=== PATIENT | male | born 1940 | race Caucasian/White ===

== ENCOUNTER 2018-11-29 11:52 | Emergency (ER) | payer MEDICARE, MEDICAID, SELFPAY ==
[2018-11-29] VITALS (15 sets, daily range): BP systolic 133–182; BP diastolic 77–93; PULSE 55–76; RESP 10–20; TEMP 36.4–36.5; O2SAT 92–98
[2018-11-29 12:38] LABS: Absolute Eosinophil Count 0.06 k/cumm (0.0-0.7); HCT 51.2 % (40.0-50.0); HGB 18.1 g/dL (13.5-17.5); Mean Corp. HGB Concentration 35.4 g/dL (32.0-36.0); Mean Corpuscular Hemoglobin 36.1 pg (27.0-33.0); Mean Corpuscular Volume 102.2 fL (80-95); Mean Platelet Volume 9.8 fL (8.0-11.0); Platelet Count 165 x1000/uL (130-400); RBC 5.01 m/cumm (4.50-6.00); RBC Distribution Width 13.8 % (11.8-14.1); White Blood Cell Count 5.75 k/cumm (4.4-10.8)
[2018-11-29 12:50] LABS: ALT 20 U/L (16-63); AST 27 U/L (15-37); Albumin 3.8 g/dL (3.4-5.0); Alkaline Phosphatase 119 U/L (46-116); Anion Gap 9.6 mmol/L (3-11); BUN 10 mg/dL (7-18); Bilirubin, Total 1.2 mg/dL (0.2-1.0); CO2 28.4 mmol/L (21.0-32.0); CREATININE 1.14 mg/dL (0.70-1.30); Calcium 9.1 mg/dL (8.5-10.1); Chloride 99 mmol/L (98-107); Glucose 117 mg/dL (70-100); Magnesium 1.8 mg/dL (1.8-2.4); Potassium 4.3 mmol/L (3.5-5.1); Sodium 137 mmol/L (136-145); Total Protein 7.1 g/dL (6.4-8.2)
[2018-11-29 12:51] LABS: Troponin I < 0.05 ng/mL (0.00-0.06)
[2018-11-29 12:54] LABS: Absolute Lymphocyte Count 0.75 k/cumm (1.2-3.4); Absolute Monocyte Count 0.17 k/cumm (0.11-0.7); Absolute Neutrophil Count 4.77 k/cumm (1.2-6.7); Atypical Lymphocytes % 4; Diff Comment Manual Differential; Macrocytosis 3+; Stomatocytes 2+
[2018-11-29 12:55] LABS: INR 1.1 (0.9-1.1); PTT Activated 25.2 sec (21.0-31.4); Prothrombin Time 10.8 sec (9.3-11.0)
--- NOTE | 2018-11-29 12:56 | ED.GENADUL_ITS ---
Discharge Plan Disposition Patient Disposition: HOME Discharge Details Chief Complaint: Dizzy/Sync Clinical Impression: Pre-syncope Primary Care Provider: Deniz Manzanares ED Provider: Oleksandr Perez Home Meds and New Rx's Prescriptions: Continued metoprolol succinate 50 mg Tablet Extended Release 24 Hr 50 mg PO DAILY RF: 0 enalapril maleate 20 mg Tablet 20 mg PO DAILY RF: 0 simvastatin 20 mg Tablet 20 mg PO DAILY RF: 0 omeprazole 20 mg Capsule,Delayed Release(Dr/Ec) 20 mg PO DAILY RF: 0 furosemide 20 mg Tablet 20 mg PO DAILY RF: 0 gabapentin 100 mg Capsule 100 mg PO TID RF: 0 fluticasone propionate 50 mcg/actuation [place],Suspension 2 spray INTRANASAL DAILY RF: 0 Discharge Instructions Instructions: Near Syncope (ED) Additional Instructions: Please contact your primary care physician to arrange follow-up. Call today. Patient discussed with the primary doctor the findings of enlarged thoracic aorta on CT imaging. Additional diagnostic testing may be necessary. Return to the ER for any worsening or new concerning symptoms. Referrals: Deniz Manzanares [Primary Care Provider] - Discharge Data Discharge Date/Time-TO BE ENTERED AT DEPARTURE: 11/29/18 15:24 Medical Decision Making 78-year-old male with history of hypertension presents after presyncopal episode with associated shortness of breath and chest tightness. Patient is hypertensive. He is not tachycardic. Saturating well on room air with no respiratory distress. ECG was reviewed and interpreted by me: Sinus bradycardia 58 bpm with left bundle branch block. I was able to obtain outside hospital record ECG from [facility] which shows left bundle branch block. Labs reviewed and reassuring. CT of the chest was interpreted by radiology: No PE, enlarged thoracic aorta - recommend outpatient follow-up and continued monitoring. Results were discussed with the patient. Plan for outpatient follow-up with his PCP. Disposition decision was made weighing the risks and benefits of hospitalization versus outpatient treatment, the risk for further decompensation, and the [place] ent's wishes. The patient was stable and requested discharge. Prior to discharge, my usual and customary return precautions were reviewed with the patient - this included follow-up instructions and reason to return to the emergency department if condition worsens, does not improve as expected, or other new concerns arise. HPI General Date/Time Provider Initiated Documentation: 11/29/18 12:05 . Limitations to Documentation: no limitations . Information obtained by: patient . HPI Narrative: 78-year-old male with history of hypertension presents with chief complaint of dizziness. Patient notes earlier today he experienced an episode that lasted approximately 30 minutes of moderate to severe dizziness, felt like he was going to pass out, no modifiers, he had associated blurring of his vision, mild chest tightness and shortness of breath. Symptoms now resolved. Related Data Home Medications Medication Instructions Recorded Confirmed enalapril maleate 20 mg PO DAILY 11/29/18 11/29/18 fluticasone propionate 2 spray INTRANASAL DAILY 11/29/18 11/29/18 furosemide 20 mg PO DAILY 11/29/18 11/29/18 gabapentin 100 mg PO TID 11/29/18 11/29/18 metoprolol succinate 50 mg PO DAILY 11/29/18 11/29/18 omeprazole 20 mg PO DAILY 11/29/18 11/29/18 simvastatin 20 mg PO DAILY 11/29/18 11/29/18 Allergies Allergy/AdvReac Type Severity Reaction Status Date / Time No Known Allergies Allergy Unverified 11/29/18 12:09 General Stated Complaint: Dizzy/Sync ALEJANDRA: 3 Review of Systems Review of Systems ROS Unobtainable: All systems reviewed & are unremarkable except as noted in HPI and below Cardiovascular Cardiovascular: Reports as per HPI Respiratory Respiratory: Reports as per HPI Gastrointestinal Gastrointestinal: Denies abdominal pain [facility] Social History Smoking/Tobacco Use Status: Former Tobacco Use Alcohol Intake: current Alcohol Intake frequency: 3 or more drinks per day Alcohol type: beer, wine and hard liquor Drug use: Daily Substance use type: does not use Do you feel safe at home: Yes Exam Const General: cooperative and no acute distress [facility] Head: normocephalic Mouth: moist mucous membranes Eyes Conjunctivae: normal conjunctivae Sclera: normal sclerae Neck Neck: trachea midline, supple and no JVD Resp Effort & Inspection: normal respiratory effort Auscultation: clear to auscultation bilaterally, no rales, no rhonchi and no wheezes Cardio Jugular venous pressure: no JVD Rate: regular rate and not tachycardic Rhythm: regular rhythm Heart Sounds: no click, no gallops, no murmurs and no rubs GI Palpation: soft, not firm, no guarding, no masses, not rigid and nontender Skin General skin exam: no rashes or lesions noted Neuro General: alert, awake, oriented x3 and tone normal Extrem General: no calf tenderness and no edema Psych Appearance: grossly normal Mental Status: mental status grossly normal Speech and Movement: speech and movement normal Course Vital Signs Vital signs: Vital Signs Temperature 36.5 C 11/29/18 11:59 Pulse 62 11/29/18 11:59 Blood Pressure 162/81 H 11/29/18 11:59 Pulse Oximetry 97 11/29/18 11:59 Temperature 36.5 C 11/29/18 11:59 Temperature Source Skin 11/29/18 11:59 Pulse 62 11/29/18 11:59 Blood Pressure 162/81 H 11/29/18 11:59 Blood Pressure Position Sitting 11/29/18 11:59 Pulse Oximetry 97 11/29/18 11:59 Oxygen Delivery Method Room Air 11/29/18 11:59 Oxygen Flow Rate 0 11/29/18 11:59 Pain Level 0 11/29/18 11:59 Lab/Test Results Lab/Test Results: Laboratory Tests Range/Units 11/29/18 11/29/18 11/29/18 12:25 12:25 12:25 WBC (4.4-10.8) k/cumm 5.75 RBC (4.50-6.00) m/cumm 5.01 Hgb (13.5-17.5) g/dL 18.1 H Hct (40.0-50.0) % 51.2 H MCV (80-95) fL 102.2 H MCH (27.0-33.0) pg 36.1 H MCHC (32.0-36.0) g/dL 35.4 RDW (11.8-14.1) % 13.8 Plt Count (130-400) x1000/uL 165 MPV (8.0-11.0) fL 9.8 Immature Gran % 0.0 Neutrophils % 82.0 Band Neutrophils % % 1.0 Lymphocytes % 9.0 Atypical Lymphs % 4 Monocytes % 3.0 Eosinophils % 1.0 Basophils % 0.0 Absolute Neutrophils (1.2-6.7) k/cumm 4.77 Absolute Lymphocytes (1.2-3.4) k/cumm 0.75 L Absolute Monocytes (0.11-0.7) k/cumm 0.17 Absolute Eosinophils (0.0-0.7) k/cumm 0.06 Absolute Basophils (0.0-0.2) k/cumm 0.00 Differential Comment Manual differential RBC Morphology See below Macrocytosis 3+ Stomatocytes 2+ PT (9.3-11.0) sec 10.8 INR (0.9-1.1) 1.1 APTT (21.0-31.4) sec 25.2 Sodium (136-145) mmol/L 137 Potassium (3.5-5.1) mmol/L 4.3 Chloride (98-107) mmol/L 99 Carbon Dioxide (21.0-32.0) mmol/L 28.4 Anion Gap (3-11) mmol/L 9.6 BUN (7-18) mg/dL 10 Creatinine (0.70-1.30) mg/dL 1.14 Estimated GFR/1.73 m2 (mL/min/1.73m2) >= 60.00 Glucose (70-100) mg/dL 117 H Calcium (8.5-10.1) mg/dL 9.1 Magnesium (1.8-2.4) mg/dL 1.8 Total Bilirubin (0.2-1.0) mg/dL 1.2 H AST (15-37) U/L 27 ALT (16-63) U/L 20 Alkaline Phosphatase (46-116) U/L 119 H Troponin I (0.00-0.06) ng/mL < 0.05 Total Protein (6.4-8.2) g/dL 7.1 Albumin (3.4-5.0) g/dL 3.8
[2018-11-29] MEDS: Omnipaque 350 MG/ML 100 ML BTL IJ (14:51)
--- NOTE | 2018-11-29 14:52 | DI.CT_ITS ---
EXAM: CT CHEST PE CTA CLINICAL HISTORY: syncope, lymphoma. TECHNIQUE: Axial CT angiography was performed with multislice acquisition and multiplanar and/or 3D reconstructions. CT angiography of the chest was performed bolus infusion of 100 cc of Omnipaque 350. COMPARISON: No exams were available for comparison FINDINGS: Images obtained through the upper abdomen show unremarkable appearance of visualized portions of live r, spleen, pancreas, adrenals and kidneys. Gallbladder and bile ducts are CT normal. There is no evidence of pulmonary embolic disease. There is ectasia of the distal thoracic aortic ar ch and proximal descending aorta measuring up to about 4.5 cm in diameter. No evidence of dissection . No pulmonary embolic disease. The lungs are predominantly clear with a calcified pulmonary nodule in the left lung base consistent with healed granulomatous disease. No evidence of mediastinal, diya r, upper abdominal, axillary or supraclavicular adenopathy. IMPRESSION: No evidence of pulmonary embolic disease. Distal arch/proximal descending aortic ectasia at 4.5 cm.
== END 2018-11-29 15:24 | disposition home or self-care (01) ==
PROVIDERS: Emergency Provider Student in an Organized Health Care Education/Training Program; PCP Family Medicine
DX: R55 Syncope and collapse (principal); R00.1 Bradycardia, unspecified
CPT/HCPCS: 36415; 36416; 71275; 80053; 82962; 93005; 99285; 83735; 84484; 85025; 85610; 85730; 93010; J3490

== ENCOUNTER 2021-03-04 14:02 | Outpatient (REF) | payer MEDICARE, MEDICAID, SELFPAY ==
[2021-03-04 14:31] LABS: ALT 25 U/L (16-63); AST 27 U/L (15-37); Alkaline Phosphatase 89 U/L (46-116); Anion Gap 4.6 mmol/L (3-11); BUN 6 mg/dL (7-18); Bilirubin, Total 0.8 mg/dL (0.2-1.0); CO2 28.4 mmol/L (21.0-32.0); CREATININE 1.1 mg/dL (0.70-1.30); Calcium 8.1 mg/dL (8.5-10.1); Chloride 104 mmol/L (98-107); Glucose 104 mg/dL (74-106); PHOSPHORUS 2.8 mg/dL (2.6-4.7); Potassium 3.7 mmol/L (3.5-5.1); Sodium 137 mmol/L (136-145); Total Protein 5.4 g/dL (6.4-8.2); Uric Acid 3.6 mg/dL (3.5-7.2)
== END 2021-03-04 14:03 | disposition home or self-care (01) ==
LOC: LBN 14:02
PROVIDERS: PCP Family Medicine; Visit Provider Internal Medicine Hematology & Oncology
DX: C83.10 Mantle cell lymphoma, unspecified site (principal)
CPT/HCPCS: 80053; 84100; 84550

== ENCOUNTER 2021-03-05 07:00 | Outpatient (RCR) | payer MEDICARE, MEDICAID, SELFPAY ==
[2021-03-05 07:45] LABS: Abs Immature Grans 0.02 10^3/uL (0.0-0.06); Absolute Basophil Count 0.06 10^3/uL (0.0-0.2); Absolute Eosinophil Count 0.17 10^3/uL (0.0-0.7); Absolute Lymphocyte Count 0.84 10^3/uL (1.2-3.4); Absolute Monocyte Count 0.63 10^3/uL (0.1-0.8); Absolute Neutrophil Count 5.09 10^3/uL (1.2-6.7); Basophils % 0.9; Eosinophils % 2.5; HCT 39.2 % (40.0-50.0); HGB 13.7 g/dL (13.5-17.5); Immature Grans % 0.3; Lymphocytes % 12.3; MCH 38.6 pg (27.0-33.0); MCHC 34.9 % (32.0-36.0); MCV 110.4 fL (80-95); MPV 9.6 fL (8.0-11.0); Monocytes % 9.3; Neutrophils % 74.7; Nucleated RBC 0 %; Platelet Count 214 10^3/uL (130-400); RBC 3.55 10^6/uL (4.36-5.78); RDW 12.3 % (11.8-14.1); RDW-SD 50.5 fL; WBC 6.81 10^3/uL (4.4-10.8)
[2021-03-05 07:59] LABS: ALT 26 U/L (16-63); AST 28 U/L (15-37); Albumin 3.4 g/dL (3.4-5.0); Alkaline Phosphatase 103 U/L (46-116); Anion Gap 6.5 mmol/L (3-11); BUN 7 mg/dL (7-18); Bilirubin, Total 0.7 mg/dL (0.2-1.0); CO2 29.5 mmol/L (21.0-32.0); CREATININE 1.2 mg/dL (0.70-1.30); Calcium 8.6 mg/dL (8.5-10.1); Chloride 104 mmol/L (98-107); Estimated GFR 58.56 (mL/min/1.73m2); Glucose 95 mg/dL (74-106); Potassium 3.9 mmol/L (3.5-5.1); Sodium 140 mmol/L (136-145); Total Protein 6.3 g/dL (6.4-8.2)
[2021-03-05 08:28] LABS: LDH 210 U/L (85-227); PHOSPHORUS 2.6 mg/dL (2.6-4.7); Uric Acid 3.6 mg/dL (3.5-7.2)
== END 2021-03-13 23:59 | disposition home or self-care (01) ==
LOC: INF 07:00
PROVIDERS: PCP Family Medicine; Visit Provider Internal Medicine Hematology & Oncology
DX: C83.18 Mantle cell lymphoma, lymph nodes of multiple sites (principal)
CPT/HCPCS: 36415; 80053; 83615; 84100; 84550; 85025

== ENCOUNTER 2021-08-26 10:03 | Emergency (ER) | payer MEDICARE, MEDICAID, SELFPAY ==
[2021-08-26] VITALS (12 sets, daily range): BP systolic 102–130; BP diastolic 73–82; PULSE 65–92; RESP 9–19; TEMP 36.5–37; O2SAT 84–98
--- NOTE | 2021-08-26 10:00 | RT.EKG_ITS ---
APPROVED REPORT Exam: Resting ECG Reason for Exam: difficulty breathing Patient Location: E HR:77 bpm ECG Measurements Heart Rate 77 AXIS WV 173 P 40 QRSd 153 QRS 22 QT 431 T 205 QTc 488 Conclusion Sinus rhythm...normal P axis, V-rate 60- 99 Left bundle branch block...QRSd>120, broad/notched R
--- NOTE | 2021-08-26 10:58 | W.ED.GENAD ---
Discharge Plan Disposition Patient Disposition: HOME Condition: Stable Discharge Details Clinical Impression: Hypomagnesemia, Esophagitis, Dehydration, Anorexia, Lymphoma Primary Care Provider: Deniz Manzanares ED Provider: iLzet Cruz Home Meds and New Rx's Prescriptions: New famotidine [Pepcid] 20 mg tablet 20 mg PO BID Qty: 14 0RF magnesium gluconate 27.5 mg magne- sium (500 mg) tablet 27.5 mg PO DAILY Qty: 14 0RF metoclopramide HCl [Reglan] 5 mg tablet 5 mg PO QAC Qty: 14 0RF Rx Instructions: administer 30 minutes before meals sucralfate [Carafate] 1 gram tablet 1 g PO BID Qty: 60 0RF Continued Venclexta 100 mg tablet 300 mg PO DAILY Spiriva Respimat 2.5 mcg/actuation mist 2 puff inhalation DAILY Qty: 4 12RF fluticasone propionate 50 mcg/actuation [place],suspension 2 spray intranasal DAILY Rx Instructions: administer into each nostril ipratropium-albuterol 0.5 mg-3 mg(2.5 mg base)/3 mL solution for nebulization 3 ml inhalation Q4H PRN (Reason: wheezing) Qty: 180 12RF fluticasone propion-salmeterol [Advair Diskus] 500-50 mcg/dose blister with device 1 inh inhalation BID albuterol sulfate [Ventolin HFA] 90 mcg/actuation HFA aerosol inhaler 2 puff inhalation 6XD metoclopramide HCl 5 mg Tablet 5 mg PO QID Rx Instructions: administer 30 minutes before meals megestrol 40 mg Tablet 40 mg PO QID metoprolol succinate 50 mg Tablet Extended Release 24 Hr 50 mg PO DAILY enalapril maleate 20 mg Tablet 20 mg PO DAILY simvastatin 20 mg Tablet 20 mg PO DAILY omeprazole 20 mg Capsule,Delayed Release(Dr/Ec) 20 mg PO DAILY furosemide 20 mg Tablet 20 mg PO DAILY gabapentin 100 mg Capsule 100 mg PO TID Discharge Instructions Instructions: Dehydration (ED), Hypomagnesemia (ED) Additional Instructions: boost or ensure drink daily to enhance your vitamins and electrolytes magnesium vitamin daily carafate as prescribed pepcid as prescribed reglan for nausea eat small, frequent meals throughout day, stick to a bland diet follow-up with your pcp to schedule endoscopy with persistent symptoms im listing surgery below if you would like schedule endoscopy at this facility Referrals: Kanwal Gomez MD [ NON-[facility] STAFF PHYSICIAN] - Deniz Manzanares [Primary Care Provider] - Nedra Oneal DO [OSTEOPATHIC DOCTOR] - Medical Decision Making <RITU Trejo - Last Filed: 08/26/21 15:23> Patient appears markedly improved He received 2 g of IV mag and 500 of oral magnesium gluconate I did consider imaging of patient's chest abdomen and pelvis, however he had CT scan approximately a week ago and his symptoms have not changed in fact they are improved from his initial assessment The concerning factors but his magnesium is 0.9 He was able to tolerate oral mag and food and fluid in the emergency department Is given prescription for Reglan as an antiemetic and encouraged to have approximately quarter cup of food every hour to 2 hours He is also encouraged to have boost and Ensure daily He is placed on Carafate, Pepcid, magnesium, boost, he will need outpatient follow-up for endoscopy, he is given a surgery referral He is encouraged to follow-up with his PCP and to take magnesium daily He is aware of the importance of eating a regular diet All of his records from his recent admission at [facility] were reviewed in detail I think patient is stable at this time for discharge home His orthostatics are negative He is ambulatory with steady gait and does report significant improvement in symptoms Vitals are stable EKG is stable for patient with left bundle branch block without new abnormality or findings consistent with hypomagnesemia Medical Records Medical records reviewed: Yes I reviewed the patient's medical records. Lab Data Lab results reviewed: Yes I reviewed the patient's lab results. ECG Data Prior ECG tracings: available for review <Oleksandr Perez MD - Last Filed: 08/26/21 15:58> Date: 08/26/21 Time: 11:15 Note: Patient seen, examined, and discussed with RITU Garcia. I agree with treatment plan as discussed/documented. HPI <RITU Trejo - Last Filed: 08/26/21 15:23> General Date/Time Provider Initiated Documentation: 08/26/21 10:07. HPI Narrative: This 81-year-old gentleman with history of COPD, non-Hodgkin's lymphoma, mantle cell lymphoma, alcohol abuse, and neuropathy, esophagitis, left bundle branch block, presents with reports of weakness with approximately 50 pound weight loss in the past month and a half. Patient states he had a similar event approximately 8 days ago for which she was admitted in [facility] he received IV fluids and assessment. He states that he was feeling marked improvement when he was discharged home and has progressively experienced return of symptoms. He states that he is having difficulty eating secondary to a sensation of fullness. He does have some chronic pain in his abdomen that he does not feel is worsening. He states that food occasionally feels like it gets stuck . Denies any associated chest pain or shortness of breath . Have intermittent nausea without vomiting. Has since discontinued his oral chemotherapy. he states that sometimes he experiences vomiting when he attempts to eat or drink. He denies any blood in vomitus or stool. He denies any new medications. He stopped taking his chemotherapy on July 25 per patient. Denies any urinary symptoms. Has not had a drink of alcohol for approximately 9 months reportedly. Related Data Home Medications Medication Instructions Recorded Confirmed enalapril maleate 20 mg tablet 20 mg PO DAILY 11/29/18 08/26/21 furosemide 20 mg tablet 20 mg PO DAILY 11/29/18 08/26/21 gabapentin 100 mg capsule 100 mg PO TID 11/29/18 08/26/21 metoprolol succinate 50 mg 50 mg PO DAILY 11/29/18 08/26/21 tablet,extended release 24 hr omeprazole 20 mg capsule,delayed 20 mg PO DAILY 11/29/18 08/26/21 release simvastatin 20 mg tablet 20 mg PO DAILY 11/29/18 08/26/21 albuterol sulfate 90 mcg/actuation 2 puff inhalation 6XD 10/14/20 08/26/21 aerosol inhaler (Ventolin HFA) fluticasone 500 mcg-salmeterol 50 1 inh inhalation BID 10/14/20 08/26/21 mcg/dose blistr powdr for inhalation (Advair Diskus) tiotropium bromide 2.5 2 puff inhalation DAILY #4 grams 04/24/21 08/26/21 mcg/actuation mist for inhalation (Spiriva Respimat) venetoclax 100 mg tablet 300 mg PO DAILY 04/24/21 07/22/21 (Venclexta) fluticasone propionate 50 2 spray intranasal DAILY 07/22/21 08/26/21 mcg/actuation nasal spray,suspension ipratropium 0.5 mg-albuterol 3 mg 3 ml inhalation Q4H PRN wheezing 07/24/21 08/26/21 (2.5 mg base)/3 mL nebulization #180 mL soln famotidine 20 mg tablet (Pepcid) 20 mg PO BID #14 tabs 08/26/21 magnesium gluconate 27.5 mg 27.5 mg PO DAILY #14 tabs 08/26/21 magnesium (500 mg) tablet megestrol 40 mg tablet 40 mg PO QID 08/26/21 08/26/21 metoclopramide HCl 5 mg tablet 5 mg PO QID 08/26/21 08/26/21 metoclopramide HCl 5 mg tablet 5 mg PO QAC #14 tabs 08/26/21 (Reglan) sucralfate 1 gram tablet (Carafate) 1 g PO BID #60 tabs 08/26/21 Previous Rx's Medication Instructions Recorded tiotropium bromide 2.5 2 puff inhalation DAILY #4 grams 04/24/21 mcg/actuation mist for inhalation (Spiriva Respimat) ipratropium 0.5 mg-albuterol 3 mg 3 ml inhalation Q4H PRN wheezing 07/24/21 (2.5 mg base)/3 mL nebulization #180 mL soln famotidine 20 mg tablet (Pepcid) 20 mg PO BID #14 tabs 08/26/21 magnesium gluconate 27.5 mg 27.5 mg PO DAILY #14 tabs 08/26/21 magnesium (500 mg) tablet metoclopramide HCl 5 mg tablet 5 mg PO QAC #14 tabs 08/26/21 (Reglan) sucralfate 1 gram tablet (Carafate) 1 g PO BID #60 tabs 08/26/21 Allergies Allergy/AdvReac Type Severity Reaction Status Date / Time levofloxacin Allergy Severe Verified 08/26/21 10:45 General Stated Complaint: GenMedical ALEJANDRA: 3 Review of Systems <RITU Trejo - Last Filed: 08/26/21 15:23> All systems reviewed & are unremarkable except as noted in HPI and below PFSH <RITU Trejo - Last Filed: 08/26/21 15:23> All Active Problems (Updated 08/26/21 @ 14:30 by RITU Trejo) Hypomagnesemia (Acute) Esophagitis (Acute) Dehydration (Acute) Anorexia (Acute) Lymphoma (Acute) Sinusitis (Acute) Hemorrhage of colon due to diverticulosis (Acute) Left shoulder pain (Acute) Dyspnea on exertion (Acute) Dupuytren's disease of palm (Acute) Gastrointestinal hemorrhage (Chronic) Acute gastritis (Acute) Esophagitis (Acute) Pleural effusion (Acute) COPD (chronic obstructive pulmonary disease) (Chronic) Hemorrhoids (Acute) Left bundle branch block (Acute) Hypertensive disorder (Chronic) Hearing loss (Acute) Neuropathy (Acute) Lesion of ulnar nerve (Acute) Alcohol abuse (Chronic) Overweight (Acute) Non-Hodgkin lymphoma (Chronic) Mantle cell lymphoma (Acute) Family History (Updated 10/14/20 @ 10:17 by Maye Huddleston) Father COPD (chronic obstructive pulmonary disease) Mother Malignant neoplasm of liver Social History (Updated 10/14/20 @ 10:20 by Maye Huddleston) Smoking/Tobacco Use Status: Former Tobacco Use Quit Date: 03/14/89 Smoking risk assessment performed?: Yes Alcohol Intake: current Alcohol Intake frequency: 0-2 drinks per day Alcohol type: wine Drug use: Never Substance use type: does not use Household members: none Communication Needs: Hard of Hearing Do you feel safe at home: Yes Do you feel safe in your relationship?: Yes Exam <RITU Trejo - Last Filed: 08/26/21 15:23> Const General: cooperative and comfortable Orientation: alert and oriented x3 HENMT Mouth: oral mucosae normal Throat: uvula midline Eyes Pupils: PERRL Resp Effort & Inspection: normal respiratory effort Auscultation: clear to auscultation bilaterally Cardio Rate: regular rate Rhythm: regular rhythm GI Other: Mild abdominal tenderness without rebound or guarding Skin General skin exam: no rashes or lesions noted Neuro General: patient alert and patient oriented x3 Speech: speech normal Gait: normal gait Extrem General: normal to inspection Course <RITU Trejo - Last Filed: 08/26/21 15:23> Vital Signs Vital signs: Vital Signs Temperature 36.5 C 08/26/21 10:04 Pulse 75 08/26/21 10:04 Respiratory Rate 18 08/26/21 10:04 Blood Pressure 117/80 08/26/21 10:04 Pulse Oximetry 98 08/26/21 10:04 Temperature 36.5 C 08/26/21 10:04 Temperature Source Temporal Artery Scan 08/26/21 10:04 Pulse 75 08/26/21 10:04 Respiratory Rate 18 08/26/21 10:46 Respiratory Effort Non-Labored 08/26/21 10:46 Respiratory Depth Normal 08/26/21 10:46 Respiratory Pattern Normal 08/26/21 10:46 Blood Pressure 117/80 08/26/21 10:04 Blood Pressure Position Sitting 08/26/21 10:04 Pulse Oximetry 98 08/26/21 10:04 Oxygen Delivery Method Room Air 08/26/21 10:04 Oxygen Flow Rate 0 08/26/21 10:04 Pain Level 4 08/26/21 10:04 PAWSS <RITU Trejo - Last Filed: 08/26/21 15:23> Have you Been Recently Intoxicated or Drunk Within the Last 30 days?: No Have you Ever Experienced Previous Episodes of Alcohol Withdrawal?: No Have you ever Experienced Withdrawal Seizures?: No Have you ever Experienced Delirium Tremens(DT)s?: No Have you ever undergone Alcohol Rehabilitation Treatment (i.e, inpt ot outpatient treatment programs)?: No Have you ever Experienced Blackouts?: No Have you ever Combined Alcohol with other Downers within the last 90 days?: No Have you ever Combined Alcohol with any other Substance of Abuse during the last 90 days?: No Positive Blood Alcohol level on Presentation? [PCS.BAL]: No Evidence of Increased Autonomic Activity (i.e. HR>120, tremor, sweating, agitation, nausea)?: No Result: 0 <Oleksandr Perez MD - Last Filed: 08/26/21 15:58> Result: 0
[2021-08-26 11:04] LABS: Abs Immature Grans 0.03 10^3/uL (0.0-0.06); Absolute Basophil Count 0.03 10^3/uL (0.0-0.2); Absolute Monocyte Count 0.72 10^3/uL (0.1-0.8); Absolute Neutrophil Count 6.85 10^3/uL (1.2-6.7); Basophils % 0.4; Eosinophils % 1.2; HCT 36.2 % (40.0-50.0); HGB 13.1 g/dL (13.5-17.5); Immature Grans % 0.4; Lymphocytes % 4.9; MCH 37.8 pg (27.0-33.0); MCHC 36.2 % (32.0-36.0); MCV 104 fL (80-95); MPV 10.1 fL (8.0-11.0); Monocytes % 8.9; Neutrophils % 84.2; Platelet Count 178 10^3/uL (130-400); RBC 3.47 10^6/uL (4.36-5.78); RDW 12.9 % (11.8-14.1); RDW-SD 49.1 fL; WBC 8.13 10^3/uL (4.4-10.8)
[2021-08-26] MEDS: Famotidine 20 MG/2 ML VIAL IVP (11:07)
[2021-08-26] MEDS: Lactated Ringers 1,000 ML 1000 ML IV (11:07)
[2021-08-26] MEDS: Sucralfate 1 GM TAB PO (11:13)
[2021-08-26 11:28] LABS: ALT 16 U/L (16-63); AST 21 U/L (15-37); Albumin 2.9 g/dL (3.4-5.0); Alkaline Phosphatase 120 U/L (46-116); Anion Gap 10.2 mmol/L (3-11); BUN 10 mg/dL (7-18); CO2 25.8 mmol/L (21.0-32.0); Calcium 8.5 mg/dL (8.5-10.1); Chloride 98 mmol/L (98-107); Glucose 107 mg/dL (74-106); Lipase 35 U/L (73-393); Magnesium 0.9 mg/dL (1.8-2.4); Potassium 3.8 mmol/L (3.5-5.1); Sodium 134 mmol/L (136-145); TSH (W/Ref FT4) 4.35 uIU/mL (0.36-3.74); Total Protein 6.4 g/dL (6.4-8.2)
[2021-08-26 11:51] LABS: FREE T4 1.43 ng/dL (0.76-1.46)
[2021-08-26] MEDS: MAGNESIUM SULFATE 2 GM/50 ML BAG IVPB (12:00)
[2021-08-26] MEDS: Metoclopramide 10 MG/2 ML VIAL 5 MG IVP (12:34)
[2021-08-26] MEDS: Lactated Ringers 500 ML IV (12:34)
[2021-08-26] MEDS: Magnesium Gluconate 500 MG TAB PO (12:37)
[2021-08-26 14:06] LABS: Magnesium 1.6 mg/dL (1.8-2.4)
--- NOTE | 2021-08-26 15:24 | NUR.NOTE ---
Nursing Note: Referral to PCP for recheck for magnesium LUIS, given to Care Management.
== END 2021-08-26 14:37 | disposition home or self-care (01) ==
LOC: ER 14:30
PROVIDERS: Emergency Provider Physician Assistant; PCP Family Medicine
DX: E83.42 Hypomagnesemia (principal); K20.90 Esophagitis, unspecified without bleeding; E86.0 Dehydration; R63.0 Anorexia; C85.90 Non-Hodgkin lymphoma, unspecified, unspecified site; J44.9 Chronic obstructive pulmonary disease, unspecified; I10 Essential (primary) hypertension
CPT/HCPCS: 36415; 80053; 83690; 93005; 96361; 96365; 96366; 96375; 99284; 83735; 84439; 84443; 85025; 93010; J2765

== ENCOUNTER → 2021-09-03 10:14 | Outpatient (BNVA) | payer MEDICARE, MEDICAID, SELFPAY | PROVIDERS: PCP Family Medicine; Referring Provider Family Medicine; Visit Provider Physical Therapy Assistant | DX: R63.4 Abnormal weight loss (principal); K20.90 Esophagitis, unspecified without bleeding; R10.9 Unspecified abdominal pain | CPT/HCPCS: 99214 ==

== ENCOUNTER 2021-10-13 02:57 | Outpatient (CLI) | payer MEDICARE, MEDICAID, SELFPAY ==
[2021-10-13 08:54] LABS: Source Nasal/Nares
[2021-10-13 14:22] LABS: COVID-19 PCR Negative (Negative)
== END 2021-10-13 02:58 | disposition home or self-care (01) ==
LOC: LBO 02:57
PROVIDERS: Visit Provider Surgery
DX: Z20.822 Contact with and (suspected) exposure to COVID-19 (principal); Z01.818 Encounter for other preprocedural examination
CPT/HCPCS: 87635

== ENCOUNTER 2021-11-10 02:54 | Outpatient (CLI) | payer MEDICARE, MEDICAID, SELFPAY ==
[2021-11-10 12:50] LABS: Source Nasal/Nares
[2021-11-10 15:19] LABS: COVID-19 PCR Negative (Negative)
== END 2021-11-10 02:55 | disposition home or self-care (01) ==
PROVIDERS: Visit Provider Surgery
DX: Z01.818 Encounter for other preprocedural examination (principal); Z20.822 Contact with and (suspected) exposure to COVID-19
CPT/HCPCS: 87635

== ENCOUNTER 2021-11-12 06:07 | Day surgery (SDC) | payer MEDICARE, MEDICAID, SELFPAY ==
[2021-11-12 06:36] VITALS: BP 114/83; PULSE 99; RESP 18; TEMP 36.7; O2SAT 96
--- NOTE | 2021-11-12 06:53 | W.PM.HP.N ---
Date of service: 11/12/21 Time of Service: 06:53 Assessment and Plan Assessment and plan (1) Acute gastritis: Status: Acute Assessment and plan: proceed with egd and colonoscopy History of Present Illness History of Present Illness Chief Complaint: abdominal pain and weight loss Narrative: 81-year-old man with a history of COPD, alcohol abuse, mantle cell lymphoma, non-Hodgkin's lymphoma and hearing loss presents for further evaluation of abdominal pain.? Patient is very hard of hearing which makes communication challenging.? He states that his hearing aid is not working.? Patient was seen in the ER at [facility] on 08/26 and was started on famotidine, magnesium supplement, Carafate and Reglan.? Patient states his symptoms have mildly improved since starting these medications however he continues to have difficulty eating.? He is unable to further describe what is causing his difficulty.? States that he is simply not hungry.? Patient was also seen at [facility] and was admitted on 08/09 through 08/12.? CT scan at that time did not show any abdominal processes. Patient states that he is not hungry he was experiencing nausea which has improved slightly.? He has been drinking Gatorade and ensures for hydration and nutrition.? ? He states that he drinks approximately one 5 L box of wine per week.? He states that his abdominal pain has improved slightly however any type of pressure in his abdomen increases his pain.? He states that he is not passing many bowel movements mostly flatus due to his lack of eating.? He describes having occasional bouts of diarrhea.? Patient states that he was being treated with oral chemotherapy medications however he stopped this on July 25 because he felt this was causing his symptoms.? PET scan from June 2021 showed overall improvement however residual active lymphoma was noted in the cutaneous and subcutaneous sites of the body in bilateral inguinal nodes and in the palate.? Patient states that he has continued to see oncology at the [facility] which he saw last week and he was given IV hydration.? He states that once he has received IV fluids he feels much better. He denies any significant changes since we saw him in the office this past August Review of Systems Constitutional Constitutional: Denies body ache(s), Denies fever(s), Reports poor appetite and Reports weight loss Comments: he feels dehydrated Eyes Eyes: Reports system reviewed and no additional complaints, except as documented ENT Ears, Nose, Mouth, and Throat: Reports abnormal hearing (stable) Cardiovascular Cardiovascular: Denies chest pain and Denies dyspnea Respiratory Respiratory: Denies chest congestion, Denies cough and Denies dyspnea Gastrointestinal Gastrointestinal: Reports abdominal pain, Denies bloating, Denies nausea and Denies vomiting Musculoskeletal Musculoskeletal: Reports system reviewed and no additional complaints, except as documented Neurologic Neurologic: Reports system reviewed and no additional complaints, except as documented and Reports abnormal hearing (stable) Psychiatric Psychiatric: Reports system reviewed and no additional complaints, except as documented Hematologic/Lymphatic Hematologic/Lymphatic: Denies easy bleeding and Denies easy bruising PFSH All Active Problems Mantle cell lymphoma (Acute) Non-Hodgkin lymphoma (Chronic) Alcohol abuse (Chronic) Hearing loss (Acute) Left bundle branch block (Acute) COPD (chronic obstructive pulmonary disease) (Chronic) Pleural effusion (Acute) Acute gastritis (Acute) Dyspnea on exertion (Acute) Medical History Dehydration Dupuytren's disease of palm Gastrointestinal hemorrhage Hemorrhage of colon due to diverticulosis Hemorrhoids Hypertensive disorder Hypomagnesemia Left shoulder pain Lesion of ulnar nerve Neuropathy Overweight Sinusitis Surgical History History of colonoscopy History of inguinal hernia repair, bilateral Family History Father COPD (chronic obstructive pulmonary disease) Mother Malignant neoplasm of liver Social History Smoking/Tobacco Use Status: Former Tobacco Use Quit Date: 03/14/89 Smoking risk assessment performed?: Yes Alcohol Intake: current Alcohol Intake frequency: 0-2 drinks per day Alcohol type: wine Drug use: Never Substance use type: does not use Household members: none Communication Needs: Hard of Hearing Do you feel safe at home: Yes Do you feel safe in your relationship?: Yes Additional Social history: live alone Meds Allergies and Home Medications Allergies Allergy/AdvReac Type Severity Reaction Status Date / Time levofloxacin Allergy Severe Verified 11/12/21 06:33 Home Medications Medication Instructions Recorded Confirmed Type enalapril maleate 20 mg tablet 20 mg PO DAILY 11/29/18 11/12/21 History furosemide 20 mg tablet 20 mg PO DAILY 11/29/18 11/12/21 History gabapentin 100 mg capsule 100 mg PO TID 11/29/18 11/12/21 History metoprolol succinate 50 mg 50 mg PO DAILY 11/29/18 11/12/21 History tablet,extended release 24 hr omeprazole 20 mg capsule,delayed 20 mg PO DAILY 11/29/18 11/12/21 History release albuterol sulfate 90 mcg/actuation 2 puff inhalation 6XD 10/14/20 11/12/21 History aerosol inhaler (Ventolin HFA) tiotropium bromide 2.5 2 puff inhalation DAILY #4 grams 04/24/21 11/12/21 Rx mcg/actuation mist for inhalation (Spiriva Respimat) venetoclax 100 mg tablet 300 mg PO DAILY 04/24/21 11/12/21 History (Venclexta) fluticasone propionate 50 2 spray intranasal DAILY 07/22/21 11/12/21 History mcg/actuation nasal spray,suspension ipratropium 0.5 mg-albuterol 3 mg 3 ml inhalation Q4H PRN wheezing 07/24/21 11/12/21 Rx (2.5 mg base)/3 mL nebulization #180 mL soln famotidine 20 mg tablet (Pepcid) 20 mg PO BID #14 tabs 08/26/21 11/12/21 Rx magnesium gluconate 27.5 mg 27.5 mg PO DAILY #14 tabs 08/26/21 11/12/21 Rx magnesium (500 mg) tablet megestrol 40 mg tablet 40 mg PO QID 08/26/21 11/12/21 History metoclopramide HCl 5 mg tablet 5 mg PO QID 08/26/21 11/12/21 History sucralfate 1 gram tablet (Carafate) 1 g PO BID #60 tabs 08/26/21 11/12/21 Rx bisacodyl 5 mg tablet,delayed 5 mg PO ONCE #4 tabs 09/03/21 11/12/21 Rx release (Dulcolax (bisacodyl)) polyethylene glycol 3350 17 17 g PO ONCE #238 grams 09/03/21 11/12/21 Rx gram/dose oral powder albuterol sulfate 90 mcg/actuation inhalation 10/14/21 History aerosol inhaler cefdinir 300 mg capsule 1 cap PO BID 10/14/21 11/12/21 History prednisone 10 mg tablet 1 tab PO BID 10/14/21 11/12/21 History fluticasone 500 mcg-salmeterol 50 1 inh inhalation BID #60 ea 10/30/21 11/12/21 Rx mcg/dose blistr powdr for inhalation (Advair Diskus) Exam Const General: cooperative, healthy appearing and comfortable Orientation: awake and oriented x3 Eyes General: appearance normal, both eyes and all related structures Conjunctivae: conjunctivae normal Sclera: sclerae normal Resp Effort & Inspection: normal respiratory effort and able to speak in complete sentences Cardio Jugular venous pressure: no JVD Rate: regular rate GI Inspection: non-distended Palpation: soft, no guarding, no hernias and nontender Auscultation: normal bowel sounds Skin General skin exam: normal turgor Neuro General: patient alert, patient awake and patient oriented x3 Cognition: normal cognition Extrem Right lower extremity: no edema Left lower extremity: no edema
--- NOTE | 2021-11-12 07:05 | W.PM.DSUDISC ---
Discharge Plan Disposition Patient Disposition: HOME Condition: Good Discharge Details Reason For Visit: EGD and colonoscopy Attending Provider: Tre Liao Primary Care Provider: Unknown,Unknown Home Meds and New Rx's Prescriptions: Continued Venclexta 100 mg tablet 300 mg PO DAILY Spiriva Respimat 2.5 mcg/actuation mist 2 puff inhalation DAILY Qty: 4 12RF fluticasone propionate 50 mcg/actuation spray,suspension 2 spray intranasal DAILY Rx Instructions: administer into each nostril ipratropium-albuterol 0.5 mg-3 mg(2.5 mg base)/3 mL solution for nebulization 3 ml inhalation Q4H PRN (Reason: wheezing) Qty: 180 12RF albuterol sulfate [Ventolin HFA] 90 mcg/actuation HFA aerosol inhaler 2 puff inhalation 6XD prednisone 10 mg tablet 1 tab PO BID Label Comments: TAKE 5 TABLETS BY MOUTH DAILY FOR 3 DAYS, THEN TAKE 4 TABLETS BY MOUTH DAILY FOR 3 DAYS, THEN TAKE 3 TABLETS DAILY FOR 3 DAYS, THEN TAKE 2 T albuterol sulfate 90 mcg/actuation HFA aerosol inhaler INHALATION Label Comments: INHALE 2 PUFFS BY MOUTH EVERY 4 HOURS NEEDED FOR WHEEZE cefdinir 300 mg capsule 1 cap PO BID Label Comments: TAKE ONE CAPSULE BY MOUTH EVERY 12 HOURS FOR 10 DAYS fluticasone propion-salmeterol [Advair Diskus] 500-50 mcg/dose blister with device 1 inh inhalation BID Qty: 60 12RF metoclopramide HCl 5 mg Tablet 5 mg PO QID Rx Instructions: administer 30 minutes before meals megestrol 40 mg Tablet 40 mg PO QID famotidine [Pepcid] 20 mg tablet 20 mg PO BID Qty: 14 0RF magnesium gluconate 27.5 mg magne- sium (500 mg) tablet 27.5 mg PO DAILY Qty: 14 0RF sucralfate [Carafate] 1 gram tablet 1 g PO BID Qty: 60 0RF metoprolol succinate 50 mg Tablet Extended Release 24 Hr 50 mg PO DAILY enalapril maleate 20 mg Tablet 20 mg PO DAILY omeprazole 20 mg Capsule,Delayed Release(Dr/Ec) 20 mg PO DAILY furosemide 20 mg Tablet 20 mg PO DAILY gabapentin 100 mg Capsule 100 mg PO TID Discontinued bisacodyl [Dulcolax (bisacodyl)] 5 mg tablet,delayed release (DR/EC) 5 mg PO ONCE Qty: 4 0RF Rx Instructions: Take according to provider's instructions for colonoscopy prep. polyethylene glycol 3350 17 gram/dose powder 17 g PO ONCE Qty: 238 0RF Rx Instructions: To be taken as directed by prescriber's office for colonoscopy prep. Discharge Instructions Instructions: Upper Endoscopy (DC), Colonoscopy (DC) Additional Instructions: 1. If tolerated, consume a soft, low fiber diet for 1-2 days. 2[address] Do not drive, drink alcohol, operate machinery, make critical decisions, or do activities that require coordination or balance for 24 hours. 3. Because air was put into your colon during the procedure, expelling air from your rectum (passing gas or farting) is normal. 4. You may not have a bowel movement for 1-3 days because of the colonoscopy prep. This is normal. 5. You may experience a sore throat for 24 to 48 hours. You may use throat lozenges or gargle with warm salt water to relieve the discomfort. 6. Because air was put into your stomach during the procedure, you may experience some belching. 7. Go directly to the emergency room if you notice any of the following: Develop chills (warm to touch), or if you have a thermometer and your temperature is above 101 Difficulty breathing or difficultly swallowing Persistent vomiting Severe abdominal pain, other than gas cramps Severe chest pain Black, tarry stools Any bleeding ? exceeding one tablespoon 8. Call your physician if the site where your intravenous was started becomes red, swollen, painful, and warm to touch. 9. Your physician has reviewed your pre-procedure medications. Please continue to take those medications as previously ordered. You will be given specific information/education regarding any changes to your medications before leaving. Activity:: Activity as Tolerated Shower/Bathe:: 24 hours Diet:: As Tolerated Discharge Orders Discharge Orders: Discharge Order (Routine); Ordered 11/12/21 Ordered By: Tre Liao DS: Diagnosis Discharge Diagnosis (1) Acute gastritis: Status: Acute
--- NOTE | 2021-11-12 07:06 | W.ANESPRE ---
General Info Date of Service Date Performed: 11/12/21 Height: 6 ft Weight: 78.9 kg Body Mass Index (BMI): 23.6 Surgical Procedure: Operation Date: 11/12/21 07:35 Proposed Procedure Side Surgeon p Colonoscopy/Gastroscopy Tre Liao MD Meds Allergies and Home Medications Allergies Allergy/AdvReac Type Severity Reaction Status Date / Time levofloxacin Allergy Severe Verified 11/12/21 06:33 Home Medication Medication Instructions Recorded enalapril maleate 20 mg tablet 20 mg PO DAILY 11/29/18 furosemide 20 mg tablet 20 mg PO DAILY 11/29/18 gabapentin 100 mg capsule 100 mg PO TID 11/29/18 metoprolol succinate 50 mg 50 mg PO DAILY 11/29/18 tablet,extended release 24 hr omeprazole 20 mg capsule,delayed 20 mg PO DAILY 11/29/18 release albuterol sulfate 90 mcg/actuation 2 puff inhalation 6XD 10/14/20 aerosol inhaler (Ventolin HFA) tiotropium bromide 2.5 2 puff inhalation DAILY #4 grams 04/24/21 mcg/actuation mist for inhalation (Spiriva Respimat) venetoclax 100 mg tablet 300 mg PO DAILY 04/24/21 (Venclexta) fluticasone propionate 50 2 spray intranasal DAILY 07/22/21 mcg/actuation nasal spray,suspension ipratropium 0.5 mg-albuterol 3 mg 3 ml inhalation Q4H PRN wheezing 07/24/21 (2.5 mg base)/3 mL nebulization #180 mL soln famotidine 20 mg tablet (Pepcid) 20 mg PO BID #14 tabs 08/26/21 magnesium gluconate 27.5 mg 27.5 mg PO DAILY #14 tabs 08/26/21 magnesium (500 mg) tablet megestrol 40 mg tablet 40 mg PO QID 08/26/21 metoclopramide HCl 5 mg tablet 5 mg PO QID 08/26/21 sucralfate 1 gram tablet (Carafate) 1 g PO BID #60 tabs 08/26/21 albuterol sulfate 90 mcg/actuation inhalation 10/14/21 aerosol inhaler cefdinir 300 mg capsule 1 cap PO BID 10/14/21 prednisone 10 mg tablet 1 tab PO BID 10/14/21 fluticasone 500 mcg-salmeterol 50 1 inh inhalation BID #60 ea 10/30/21 mcg/dose blistr powdr for inhalation (Advair Diskus) Current Visit Medications: Current Medications Generic Name Dose Route Start Last Admin Trade Name Crai PRN Reason Stop Dose Admin Ringer's Solution 1,000 mls @ 80 mls/hr 11/12/21 06:00 IV 12/11/21 23:59 INFUSION VERONICA IV Miscellaneous Supplies 1 each 11/12/21 06:00 Iv Access IV 12/11/21 23:59 DIRECTED VERONICA Sodium Chloride 0 ml 11/12/21 06:00 Normal Saline Flush 10 Ml Syr IV 12/11/21 23:59 PRN PRN Sodium Chloride 0 ml 11/12/21 06:00 Normal Saline 10 Ml Vial IJ 12/11/21 23:59 DIRECTED PRN Sterile Water 0 ml 11/12/21 06:00 Water,Injection,Sterile 10 Ml Vial IJ 12/11/21 23:59 DIRECTED PRN PFSH Active Problems Active Problems: Problem Status Onset Code Mantle cell lymphoma C83.10 Non-Hodgkin lymphoma C85.90 Alcohol abuse F10.10 Hearing loss H91.90 Left bundle branch block I44.7 COPD (chronic obstructive pulmonary disease) J44.9 Pleural effusion J90 Acute gastritis K29.00 Dyspnea on exertion R06.00 Medical History Medical History Dehydration Dupuytren's disease of palm Gastrointestinal hemorrhage Hemorrhage of colon due to diverticulosis Hemorrhoids Hypertensive disorder Hypomagnesemia Left shoulder pain Lesion of ulnar nerve Neuropathy Overweight Sinusitis Medical History Comments:: Poor historian with medications (can't see the names of them). Surgical History Surgical History History of colonoscopy History of inguinal hernia repair, bilateral Tobacco Smoking/Tobacco Use Status: Former Tobacco Use Alcohol Alcohol Intake: current Alcohol intake frequency: 0-2 drinks per day Alcohol type: beer and wine Substance Use Substance use: Never Substance use type: does not use Vital Signs and Lab Results Vital Signs Most Recent Vital Signs in EMR: Most Recent Vital Signs Temp Pulse Resp BP Pulse Ox 36.7 C 99 H 18 114/83 96 11/12/21 06:36 11/12/21 06:36 11/12/21 06:36 11/12/21 06:36 11/12/21 06:36 Lab Results Blood Type / Crossmatch: No Data to Display Complete Blood Count: No Data to Display Complete Metabolic Panel: No Data to Display Liver Function Panel: No Data to Display Coagulation Panel: No Data to Display Cardiac Panel: No Data to Display Arterial Blood Gas: No Data to Display Venous Blood Gas: No Data to Display Pancreas Panel: No Data to Display Thyroid Panel: No Data to Display Infectious Disease: Coronavirus (COVID-19)(PCR) Negative (Negative) 11/10/21 08:44 Coronavirus 2019 Source Nasal/Nares 11/10/21 08:44 Blood Cultures: No Data to Display Toxicology Panel: No Data to Display Imaging and Studies Imaging and Studies Study information below may be from another EMR and interpreted by another provider. Please see original notes in EMR for more complete details. EKG Summary: Conclusion Sinus rhythm...normal P axis, V-rate 60- 99 Left bundle branch block...QRSd>120, broad/notched R Anesthesia Assessment and Plan Anesthesia History Personal History: No History of Anesthesia Complications Family History: No Family History of Anesthesia Complications Exercise Tolerance Exercise Tolerance: Metabolic Equivalents>4 Pertinent Negatives Pertinent Negatives: No Symptoms of GERD, No Major Cardiovascular Symptoms or Complaints, No Major Pulmonary Symptoms or Complaints and No History of CVA/TIA Cardiac & Pulmonary Exam Cardiac Exam: Normal S1/S2 Heart Sounds Pulmonary Exam: Clear Bilateral Breath Sounds Implantable Cardiac Device Does patient have a Pacemaker or an ICD?: No Airway Exam Known Difficult Airway: No Mallampati Class: 2 Mouth Opening: Normal (> 3cm) Thyromental Distance: Greater than 3 cm Neck Range of Motion: Full ROM Neck Circumference: Normal Teeth Condition: Loose or Chipped (Various missing teeth) ASA Classification ASA Score: ASA 3 Emergency Case?: No NPO Status NPO Status: NPO Clears >2 hours, Solids >8 hours Anesthesia Plan Resuscitation Status: Full Code Anesthesia Technique: General Anesthesia Airway Planned: Natural Airway Monitors Used: Standard Monitors
--- NOTE | 2021-11-12 07:08 | W.COLOREPORT ---
Colonoscopy Report Date of procedure: 11/12/21 Pre-op diagnosis general: gastritis Post-op diagnosis procedure note: other (normal EGD, colon polyps, hemorrhoids) Procedure: EGD and colonoscopy Surgeon: Dariel Liao Anesthesia Type: General:No Airway Estimated blood loss (mL): 20 Pathology: other (nasim-appencieal polyp, polyp at 120 cm, polyp at 50cm) Complications: None Disposition: same day Indications: Patient states that he is not hungry he was experiencing nausea which has improved slightly.? He has been drinking Gatorade and ensures for hydration and nutrition.? ? He states that he drinks approximately one 5 L box of wine per week.? He states that his abdominal pain has improved slightly however any type of pressure in his abdomen increases his pain.? He states that he is not passing many bowel movements mostly flatus due to his lack of eating.? He describes having occasional bouts of diarrhea.? Patient states that he was being treated with oral chemotherapy medications however he stopped this on July 25 because he felt this was causing his symptoms.? PET scan from June 2021 showed overall improvement however residual active lymphoma was noted in the cutaneous and subcutaneous sites of the body in bilateral inguinal nodes and in the palat Prep: Miralax/Dulcolax Procedure Start Time: 07:33 Procedure End Time: 08:18 Retraction Time: 27 Procedure Description: After the initiation of monitored anesthetic care, and with the assistance of a bite block, I advanced a standard gastroscope through the mouth past the hypopharynx and into the esophagus.? Under the direct vision of the scope, I advanced down the esophagus into the stomach.? Once I entered the stomach, I performed a brief inspection, followed by retroflexion towards the gastric cardia.? This appeared normal.? After that, I gently advanced the scope around the incisura angularis and examined the pylorus.? This also appeared normal.? Next, I advanced the scope through the pylorus into the duodenum.? The mucosa was pink and healthy appearing.? There were no abnormalities.? I was able to visualize bile draining into the duodenum through the ampulla Vater. ?Next, I began retracting the endoscope.? Again, I returned to the stomach which was carefully examined once again.? I then gently desufflated some of the stomach, and withdrew the endoscope into the distal esophagus. The GE junction was normal-appearing, with the Z-line approximately 27 cm. ?Finally, I withdrew the scope along the length of the esophagus taking great care to examine the entirety of the mucosa.? I did not appreciate any abnormalities. After the induction of monitored anesthetic care, and with the patient in left lateral decubitus position, I began by performing an external anorectal exam.? Perineum and skin were normal, as was the anal verge.? There was some evidence of external fibrosed hemorrhoids.? Next, I performed a digital rectal exam.? I did not appreciate any abnormal findings.? Next, I advanced a colonoscope into the rectal vault.? I performed retroflexion.? I did see signs of grade 2 internal hemorrhoids.? Using insufflation, I then advanced the colonoscope beyond the rectal folds and into the sigmoid colon before advancing towards the cecum.? The quality of the prep was excellent.? The scope was noted to be in the cecum by identification of the ileocecal valve and appendiceal orifice.?I identified a 0.5 cm polyp immediately adjacent to the appendiceal orifice. ?It appeared sessile in character. ?I was able to remove this with a cold forceps. ?I examined the site, and there was minimal bleeding. ?Once this was completed, I continued to withdraw the scope and examine the remainder of the colonic mucosa. I then began withdrawing the colonoscope using repeated irrigation as necessary for full evaluation of the colonic mucosa. Around 120 cm from the anal verge I identified a 0.5 cm polyp. ?It appeared sessile in character. ?I was able to remove this with a cold forceps. ?I examined the site, and there was minimal bleeding. ?Similaryly, around 50 cm from the anal verge I identified a 0.75 cm polyp. ?It appeared sessile in character. ?I was able to remove this with a cold forceps. ?I examined the site, and there was minimal bleeding. ?Once this was completed, I continued to withdraw the scope and examine the remainder of the colonic mucosa. Once this was completed, I continued to withdraw the scope and examine the remainder of the colonic mucosa. There was sigmoid diverticulosis. once the scope was withdrawn to the level of the rectum, great care was taken to examine portions of the rectal folds.? Finally, the scope was withdrawn and the patient was brought to the same-day surgery recovery unit as the anesthetic wore off. ?The findings and instructions were shared with the patient prior to discharge.
[2021-11-12] MEDS: Lactated Ringers 1,000 ML 80 ML IV (07:20)
[2021-11-12 07:22] VITALS: BMI 23.6
--- NOTE | 2021-11-12 08:04 | BOWEL_PTH ---
PATIENT: Lizet Dong LOC: [facility] U#:[id number] AGE/SX: 81/M ROOM: RE11/12/[address]: Tre Liao MD : 1940 BED: DIS: 11/12/2021 SPEC #: [id number] RECD: 11/12/21 12:52 STATUS: ANGELIQUE REQ #: [id number] MITRA: 11/12/21 08:[address]: Tre Liao DEPT: Surgical Specimen RECD BY: Lizet Hill ENTERED: 11/12/21 12:53 SP TYPE: Bowel OTHR DR: Marco Manzanares Unknown,Unknown Tissues: 1 - BIOPSY BOWEL 2 - BIOPSY BOWEL 3 - BIOPSY BOWEL Procedures: GROSS AND MICRO LEVEL 4 Comments: [id number]
[2021-11-12 08:25] VITALS: BP 89/58; PULSE 82; RESP 18; TEMP 36; O2SAT 95
[2021-11-12 08:53] VITALS: BP 112/69; PULSE 86; RESP 18; TEMP 36.2; O2SAT 95
--- NOTE | 2021-11-12 08:55 | W.ANESPOSTOP ---
Postoperative Evaluation Date, Time and Location Date Performed: 11/12/21 Time Performed: 08:45 Patient Location: Day Surgery Unit Vital Signs Most Recent Imported Vital Signs: Most Recent Vital Signs Temp Pulse Resp BP Pulse Ox 36 C L 82 18 89/58 L 95 11/12/21 08:25 11/12/21 08:25 11/12/21 08:25 11/12/21 08:25 11/12/21 08:25 Pain Score Most Recent Pain Score: Most Recent Pain Score Pain Level 0 11/12/21 08:25 Assessment Mental Status: Awake (Alert & Oriented to Patient Baseline) Airway and Respiratory Function: Patent airway with normal (patient baseline) respiratory exam Cardiovascular Function: Hemodynamically Stable Hydration Status: Adequately Hydrated Nausea & Vomiting: No Nausea or Vomiting Pain: Pt. Denies Any Pain Peripheral Nerve Block: Patient did not receive a nerve block
== END 2021-11-12 09:18 | disposition home or self-care (01) ==
PROVIDERS: PCP Family Medicine; Visit Provider Surgery
PROC: (CPT 45380; principal; 2021-11-12 07:30)
DX: K29.00 Acute gastritis without bleeding (principal); R63.0 Anorexia; C83.15 Mantle cell lymphoma, lymph nodes of inguinal region and lower limb; K63.5 Polyp of colon; K57.30 Diverticulosis of large intestine without perforation or abscess without bleeding; K64.8 Other hemorrhoids; Z79.899 Other long term (current) drug therapy
CPT/HCPCS: 45380; 43235; 88305; J2704

== ENCOUNTER 2022-06-10 10:34 | Outpatient (REF) | payer MEDICARE, MEDICAID, SELFPAY ==
--- NOTE | 2022-06-10 09:50 | ORMUBX_PTH ---
PATIENT: Lziet Dong LOC: [facility] U#:[id number] AGE/SX: 82/M ROOM: RE06/10/[address]: Almas Anthony MD : 1940 BED: DIS: 06/10/2022 SPEC #: [id number] RECD: 06/10/22 18:22 STATUS: ANGELIQUE REQ #: [id number] MITRA: 06/10/22 09:[address]: Almas Anthony DEPT: Surgical Specimen RECD BY: Lizet Hill ENTERED: 06/10/22 18:24 SP TYPE: ORMUBX OTHR DR: JUSTIN MACHADO Tissues: 1 - MUCOSA, NOS Procedures: GROSS AND MICRO LEVEL 4 IMMUNOPEROXIDASE STAIN Comments: [id number]
== END 2022-06-10 10:35 | disposition home or self-care (01) ==
LOC: LBN 10:34
PROVIDERS: PCP Family Medicine; Visit Provider Otolaryngology
DX: C83.13 Mantle cell lymphoma, intra-abdominal lymph nodes (principal)
CPT/HCPCS: 88305; 88361

== ENCOUNTER → 2024-06-12 08:01 | Outpatient (BNVA) | payer MEDICARE, MEDICAID, SELFPAY | PROVIDERS: PCP Family Medicine; Referring Provider Family Medicine; Visit Provider Podiatrist | DX: G62.9 Polyneuropathy, unspecified (principal); I73.89 Other specified peripheral vascular diseases; B35.1 Tinea unguium; F10.10 Alcohol abuse, uncomplicated; L60.3 Nail dystrophy; N18.9 Chronic kidney disease, unspecified; R09.89 Other specified symptoms and signs involving the circulatory and respiratory systems; R60.0 Localized edema; L65.9 Nonscarring hair loss, unspecified; R23.8 Other skin changes; L60.8 Other nail disorders | CPT/HCPCS: 11721; 99214 ==